=== PATIENT | female | born 1955 | race Caucasian/White ===

== ENCOUNTER → 2018-12-04 | Outpatient (CLI) | payer OTHER ==
--- NOTE | 2018-12-04 12:21 | US ---
EXAMINATION TYPE: US venous doppler duplex LE LT DATE OF EXAM: 12/04/2018 11:10 AM COMPARISON: NONE CLINICAL HISTORY: I80.9 Phlebitis and thrombophlebitis of unspecifie. plantar fasciitis surgery 6 wee ks ago, still swelling, no h/o dvt SIDE PERFORMED: Left TECHNIQUE: The lower extremity deep venous system is examined utilizing real time linear array sonog teressa with graded compression, doppler sonography and color-flow sonography. VESSELS IMAGED: External Iliac Vein (EIV) Common Femoral Vein Deep Femoral Vein Greater Saphenous Vein * Femoral Vein Popliteal Vein Small Saphenous Vein * Proximal Calf Veins (* superficial vessels) Grayscale, color doppler, spectral doppler imaging performed of the deep veins of the left lower extr emity. There is normal flow, compressibility, vascular waveforms. Left Leg: Appears negative for DVT tech impression given to office @1114 IMPRESSION: No sonographic evidence of deep venous thrombosis within the visualized portions of the left lower extremity.
== END | disposition home or self-care (01) ==
LOC: RADUSWWP 10:33
PROVIDERS: ATTEND Orthopaedic Surgery
DX: I80.3 Phlebitis and thrombophlebitis of lower extremities, unspecified (principal)

== ENCOUNTER → 2019-01-02 | Outpatient (CLI) | payer OTHER ==
--- NOTE | 2019-01-03 10:25 | P.ARTDOP ---
Arterial Doppler LOWER EXTREMITY ARTERIAL DOPPLER: DATE OF SERVICE: 01/02/2019 Reason for study: Left leg ulcer. Doppler waveforms: Multiphasic bilaterally throughout. Pulse volume recording: []. Pressure gradients: None. Ankle-brachial indices: Greater than 1 on the right and 0.93 on the left. Toe pressures: [] on the right, [] on the left Impression: Normal on the right with possible very mild left SFA disease..
== END | disposition home or self-care (01) ==
LOC: RADUSWWP 09:29
PROVIDERS: ATTEND Podiatrist
DX: I87.312 Chronic venous hypertension (idiopathic) with ulcer of left lower extremity (principal)
CPT/HCPCS: 93923

== ENCOUNTER 2021-03-16 18:09 | Inpatient (IN) | payer MEDICARE, OTHER ==
[2021-03-16 20:04] LABS: Basophils # (A) 0.1 k/uL (0-0.2); Basophils % (A) 1 %; Eosinophils # (A) 0.2 k/uL (0-0.7); Eosinophils % (A) 2 %; HGB 14.7 gm/dL (11.4-16.0); Lymphocytes # (A) 2.4 k/uL (1.0-4.8); Lymphocytes % (A) 17 %; MCH 27.5 pg (25.0-35.0); MCV 85.9 fL (80.0-100.0); Mean Platelet Volume 8.6; Monocytes # (A) 0.8 k/uL (0-1.0); Monocytes % (A) 5 %; Neutrophils # (A) 10.3 k/uL (1.3-7.7); Neutrophils % (A) 74 %; Platelet Count 280 k/uL (150-450); RBC 5.35 m/uL (3.80-5.40); RDW 13.7 % (11.5-15.5)
[2021-03-16 20:16] LABS: Albumin 4.6 g/dL (3.5-5.0); Calcium 9.8 mg/dL (8.4-10.2); Total Bilirubin 0.5 mg/dL (0.2-1.3); Total Protein 7.8 g/dL (6.3-8.2)
[2021-03-16 20:22] LABS: INR 0.9 (<1.2); Partial Thromboplastin Time 22.4 sec (22.0-30.0)
[2021-03-16] MEDS ORDERED: ASPIRIN 81 MG PO STA (21:54)
[2021-03-16] MEDS ORDERED: HEPARIN SODIUM 1,000 UN/ML (10ML VL) IV PRN (21:55)
[2021-03-16] MEDS ORDERED: HEPARIN SODIUM 1,000 UN/ML (10ML VL) IV ONE (21:55)
--- NOTE | 2021-03-16 21:55 | ED ---
General Adult HPI - General Chief complaint: Recheck/Abnormal Lab/Rx Stated complaint: Recheck/Abnormal Stress Test Source: patient Mode of arrival: ambulatory Limitations: no limitations - History of Present Illness Initial comments: 65-year-old female with past medical history of high cholesterol presents emergency department after she was told that she had abnormal results from her stress test. Patient reports that she has had some chest discomfort over the past 2 weeks. Reports that it starts in her left arm and travels up to the left side of her neck. The pain is intermittent with walking. Denies any current pain. She was seen in her primary care office one week ago. They did order a stress test and placed her on Flexeril. Patient had her stress test today. She was called just prior to hospital arrival and they told her that her tests was abnormal and she needed to come to the hospital. Denies previous history of cardiac disease. Does not follow with geographic analyst. Patient not on any blood thinners and denies contraindication. No associated shortness of breath, fevers, chills or cough. No lower trauma swelling. No other alleviating, precipitating or modifying factors - Related Data Home Medications Medication Instructions Recorded Confirmed Atorvastatin [Lipitor] 20 mg PO HS 03/16/21 03/16/21 Cyclobenzaprine [Flexeril] 10 mg PO HS PRN 03/16/21 03/16/21 Famotidine 40 mg PO DAILY 03/16/21 03/16/21 Omeprazole 40 mg PO DAILY 03/16/21 03/16/21 Triamterene/Hydrochlorothiazid 1 tab PO DAILY 03/16/21 03/16/21 [Triamterene-Hctz 37.5-25 mg Tb] Allergies Allergy/AdvReac Type Severity Reaction Status Date / Time Penicillins Allergy Unknown Verified 03/16/21 22:26 Sulfa (Sulfonamide Allergy Unknown Verified 03/16/21 22:26 Antibiotics) Review of Systems ROS Statement: Those systems with pertinent positive or pertinent negative responses have been documented in the HPI. ROS Other: All systems not noted in ROS Statement are negative. Past Medical History Past Medical History: GERD/Reflux, Hyperlipidemia History of Any Multi-Drug Resistant Organisms: None Reported Past Surgical History: Orthopedic Surgery Past Psychological History: No Psychological Hx Reported Smoking Status: Former smoker Past Alcohol Use History: Occasional Past Drug Use History: None Reported General Exam Limitations: no limitations Course Vital Signs 03/16/21 03/16/21 03/17/21 19:14 21:00 00:00 Temperature 98.6 F Pulse Rate 99 85 Pulse Rate [ 95 Pulse Oximetery ] Respiratory 20 18 Rate Blood Pressure 129/75 131/79 O2 Sat by Pulse 98 96 Oximetry - Reevaluation(s) Reevaluation #1: Spoke with Dr. Lopez - will heparinize, ASA, and make NPO at midnight. Patient not having any active chest pain. 03/16/21 21:54 EKG Findings - EKG Comments: EKG Findings:: EKG demonstrates a normal sinus rhythm with a ventricular rate of 87. MS interval 166. QRS E4. QTC of 425. There is a biphasic T-wave in lead 3. Mild ST depression in [address] No acute ST segment elevation. Medical Decision Making - Medical Decision Making Upon arrival patient is placed into room 6. I did review her stress test which reveals a large area of ischemia of the inferior wall. Patient is not currently symptomatic. 12-lead EKG does not demonstrate any acute ST segment elevation. Laboratory studies are conducted which demonstrates a troponin of 0.260. Patient has no contraindications and therefore she is placed on heparin and given an aspirin. I discussed the case with Dr. Lopez who agreed to this treatment plan. Chest x-ray was performed which demonstrates no active cardio pulmonary disease. Patient will be admitted to Dr. Quintero who agrees to admission. Patient remained in stable condition awaiting a bed on the floor - Lab Data Result diagrams: 03/16/21 19:43 03/16/21 19:43 Lab Results 03/16/21 03/16/21 03/16/21 Range/Units 19:43 19:43 19:43 WBC 14.0 H (3.8-10.6) k/uL RBC 5.35 (3.80-5.40) m/uL Hgb 14.7 (11.4-16.0) gm/dL Hct 46.0 (34.0-46.0) % MCV 85.9 (80.0-100.0) fL MCH 27.5 (25.0-35.0) pg MCHC 32.0 (31.0-37.0) g/dL RDW 13.7 (11.5-15.5) % Plt Count 280 (150-450) k/uL MPV 8.6 Neutrophils % 74 % Lymphocytes % 17 % Monocytes % 5 % Eosinophils % 2 % Basophils % 1 % Neutrophils # 10.3 H (1.3-7.7) k/uL Lymphocytes # 2.4 (1.0-4.8) k/uL Monocytes # 0.8 (0-1.0) k/uL Eosinophils # 0.2 (0-0.7) k/uL Basophils # 0.1 (0-0.2) k/uL PT 10.0 (9.0-12.0) sec INR 0.9 (<1.2) APTT 22.4 (22.0-30.0) sec Sodium 138 (137-145) mmol/L Potassium 4.0 (3.5-5.1) mmol/L Chloride 102 (98-107) mmol/L Carbon Dioxide 24 (22-30) mmol/L Anion Gap 12 mmol/L BUN 26 H (7-17) mg/dL Creatinine 1.08 H (0.52-1.04) mg/dL Est GFR (CKD-EPI)AfAm 62 (>60 ml/min/1.73 sqM) Est GFR (CKD-EPI)NonAf 54 (>60 ml/min/1.73 sqM) Glucose 117 H (74-99) mg/dL Calcium 9.8 (8.4-10.2) mg/dL Total Bilirubin 0.5 (0.2-1.3) mg/dL AST 25 (14-36) U/L ALT 23 (4-34) U/L Alkaline Phosphatase 98 (38-126) U/L Troponin I (0.000-0.034) ng/mL Total Protein 7.8 (6.3-8.2) g/dL Albumin 4.6 (3.5-5.0) g/dL 03/16/21 Range/Units 19:43 WBC (3.8-10.6) k/uL RBC (3.80-5.40) m/uL Hgb (11.4-16.0) gm/dL Hct (34.0-46.0) % MCV (80.0-100.0) fL MCH (25.0-35.0) pg MCHC (31.0-37.0) g/dL RDW (11.5-15.5) % Plt Count (150-450) k/uL MPV Neutrophils % % Lymphocytes % % Monocytes % % Eosinophils % % Basophils % % Neutrophils # (1.3-7.7) k/uL Lymphocytes # (1.0-4.8) k/uL Monocytes # (0-1.0) k/uL Eosinophils # (0-0.7) k/uL Basophils # (0-0.2) k/uL PT (9.0-12.0) sec INR (<1.2) APTT (22.0-30.0) sec Sodium (137-145) mmol/L Potassium (3.5-5.1) mmol/L Chloride (98-107) mmol/L Carbon Dioxide (22-30) mmol/L Anion Gap mmol/L BUN (7-17) mg/dL Creatinine (0.52-1.04) mg/dL Est GFR (CKD-EPI)AfAm (>60 ml/min/1.73 sqM) Est GFR (CKD-EPI)NonAf (>60 ml/min/1.73 sqM) Glucose (74-99) mg/dL Calcium (8.4-10.2) mg/dL Total Bilirubin (0.2-1.3) mg/dL AST (14-36) U/L ALT (4-34) U/L Alkaline Phosphatase (38-126) U/L Troponin I 0.260 H* (0.000-0.034) ng/mL Total Protein (6.3-8.2) g/dL Albumin (3.5-5.0) g/dL Disposition Clinical Impression: Chest pain, Abnormal stress test, NSTEMI (non-ST elevated myocardial infarction) Disposition: ADMITTED IP TO THIS [facility] Condition: Serious Is patient prescribed a controlled substance at d/c from ED?: No Decision to Admit Reason: Admit from EC Decision Date: 03/16/21 Decision Time: 21:56
[2021-03-16] MEDS ORDERED: NALOXONE 0.4 MG/ML 1 ML VIAL IV PRN (21:56)
[2021-03-16] MEDS ORDERED: HEPARIN SOD,PORK IN 0.45% NACL 25,000 UNIT in 0.45% NACL 1 250ML.BAG IV SCH (22:00)
--- NOTE | 2021-03-16 22:17 | XR ---
EXAMINATION TYPE: XR chest 2V DATE OF EXAM: 03/16/2021 COMPARISON: NONE HISTORY: Cough TECHNIQUE: 2 views FINDINGS: Heart and mediastinum are normal. Lungs are clear. Diaphragm is normal. Bony thorax is inta ct. Costophrenic angles are clear. IMPRESSION: No active cardiopulmonary disease. Normal heart.
[2021-03-17 04:50] LABS: Basophils # (A) 0.1 k/uL (0-0.2); Basophils % (A) 1 %; Eosinophils # (A) 0.2 k/uL (0-0.7); Eosinophils % (A) 2 %; HCT 46.2 % (34.0-46.0); HGB 14.7 gm/dL (11.4-16.0); Lymphocytes # (A) 3.3 k/uL (1.0-4.8); Lymphocytes % (A) 26 %; MCH 27.4 pg (25.0-35.0); MCHC 31.8 g/dL (31.0-37.0); MCV 86.2 fL (80.0-100.0); Monocytes # (A) 0.6 k/uL (0-1.0); Monocytes % (A) 5 %; Neutrophils # (A) 8.4 k/uL (1.3-7.7); Neutrophils % (A) 66 %; Platelet Count 284 k/uL (150-450); RBC 5.37 m/uL (3.80-5.40); RDW 13.7 % (11.5-15.5); WBC 12.8 k/uL (3.8-10.6)
[2021-03-17 05:02] LABS: Partial Thromboplastin Time 42.7 sec (22.0-30.0); Prothrombin Time 10.3 sec (9.0-12.0)
[2021-03-17 05:22] LABS: Calcium 10.1 mg/dL (8.4-10.2); Potassium 3.7 mmol/L (3.5-5.1)
[2021-03-17] MEDS ORDERED: NITROGLYCERIN SL TABS 0.4 MG TAB SUBLINGUAL PRN ×2 (08:29→11:12)
[2021-03-17] MEDS ORDERED: ALPRAZolam 0.25 MG TAB PO PRN (08:29)
[2021-03-17] MEDS ORDERED: ALPRAZolam 0.5 MG TAB PO PRN (08:29)
[2021-03-17] MEDS ORDERED: ATORVASTATIN 80 MG TAB PO STA (08:29)
[2021-03-17] MEDS ORDERED: NON FORMULARY DRUG (Famotidine [Famotidine] 40 MG Tablet) PO SCH (09:00)
[2021-03-17] MEDS: PANTOPRAZOLE 40 MG TABLET PO SCH (09:07)
[2021-03-17] MEDS ORDERED: IV FLUID CONTINUATION 1,000 ML IV ONE (09:25)
[2021-03-17] MEDS ORDERED: LIDOCAINE 1% INJ 10MG/ML (20 ML MDV) SQ ONE ×2 (09:35→09:38)
[2021-03-17] MEDS ORDERED: MIDAZOLAM 2 MG/2 ML VIAL IV ONE (09:35)
[2021-03-17] MEDS ORDERED: fentaNYL (PF) 50 MCG/ML 2 ML AMP IV ONE (09:35)
[2021-03-17] MEDS ORDERED: VERAPAMIL SYRINGE (5 MG/10 ML) INTRAARTER ONE (09:39)
[2021-03-17] MEDS: HEPARIN SODIUM 1,000 UN/ML (10ML VL) IV ONE ×3 (09:46→10:36)
[2021-03-17] MEDS ORDERED: NITROGLYCERIN 1000MCG/10ML SYRINGE INTRACORON ONE ×3 (10:20→10:47)
[2021-03-17] MEDS ORDERED: PRASUGREL 10 MG TAB PO ONE (10:29)
--- NOTE | 2021-03-17 10:41 | P.CRDCN ---
History of Present Illness History of present illness: This is a 65 year old female with a past medical history of hyperlipidemia and vertigo, former smoker quit 4 years ago. She does not follow with a sales promotion representative. We are consulted for chest pain. Patient underwent a Cardiolyte stress test yesterday 03/16/21 that revealed large stress induced ischemia along the inferior wall. She was told to go to the emergency department. She states she underwent the stress test because for 2-3 weeks she has been having intermittent left and right sided chest pain, radiating to her neck, jaw and down her right arm. She states it would come on with activity. She did have some mild shortness of breath with it. Denies nausea, diaphoresis, lightheadedness, dizziness, syncope or near syncope. She denies any history of CAD, [place], Hypertension, diabetes, or stroke. She denies family history of heart disease. She is a former smoker quit 4 years ago. Denies alcohol or illicit drug use. Currently she is chest pain free. DIAGNOSTICS EKG reveal sinus rhythm, heart rate 87, T wave inversion in lead 3, no significant ST-T wave abnormalities to suggest acute ischemia. Chest xray no acute cardiopulmonary process Laboratory reviewtroponin 0.26, 0.22, 0.22, WBC 12.8, hemoglobin 14.7, platelets 284, sodium 138, potassium 3.7, BUN 23, serum creatinine 0.9, COVID-19 negative Current home medications include Dyazide 30 7. 525 milligrams daily, atorvastatin 20 mg daily REVIEW OF SYSTEMS At the time of my exam: CONSTITUTIONAL: Denies fever or chills. CARDIOVASCULAR: Denies chest pain, shortness of breath, orthopnea, PND or palpitations. RESPIRATORY: Denies cough. GASTROINTESTINAL: Denies abdominal pain, diarrhea, constipation, nausea or vomiting. MUSCULOSKELETAL: Denies myalgias. NEUROLOGIC: Denies numbness, tingling, headache or weakness. ENDOCRINE: Denies fatigue, weight change, polydipsia or polyurina. GENITOURINARY: Denies burning, hematuria or urgency with micturation. HEMATOLOGIC: Denies history of anemia or bleeding. PHYSICAL EXAMINATION vitals reviewed CONSTITUTIONAL: No apparent distress. HEENT: Head is normocephalic. Pupils are equal, round. Sclerae anicteric. Mucous membranes of the mouth are moist. No JVD. No carotid bruit. CHEST EXAMINATION: Lungs are clear to auscultation. No chest wall tenderness is noted on palpation or with deep breathing. HEART EXAMINATION: Regular rate and rhythm. S1, S2 heard. No murmurs, gallops or rub. ABDOMEN: Soft, nontender. Positive bowel sounds. EXTREMITIES: 2+ peripheral pulses, no lower extremity edema and no calf tenderness. SKIN: warm, dry NEUROLOGIC EXAMINATION: Patient is awake, alert and oriented x3. ASSESSMENT NSTEMI History of hyperlipidemia History of vertigo takes Dyazide for vertigo Former tobacco use PLAN Obtain 2D echocardiogram and doppler study to assess cardiac structure and function. Plan for cardiac catheterization today, patient is agreeable I have discussed the risks, benefits and alternative therapies for the above- mentioned procedure and for both sedation/analgesia as well as necessary blood product administration, if indicated, as they pertain to this patient. The patient has indicated understanding and acceptance of the risks and procedures discussed. Questions have been answered appropriately and she is agreeable to move forward with the above-stated procedure. Further conditions based on clinical course Thank you kindly for this consultation. Nurse Practitioner note has been reviewed, I agree with a documented findings and plan of care. Patient was seen and examined. Past Medical History Past Medical History: GERD/Reflux, Hyperlipidemia History of Any Multi-Drug Resistant Organisms: None Reported Past Surgical History: Orthopedic Surgery Past Psychological History: No Psychological Hx Reported Smoking Status: Former smoker Past Alcohol Use History: Occasional Past Drug Use History: None Reported Medications and Allergies Home Medications Medication Instructions Recorded Confirmed Type Atorvastatin [Lipitor] 20 mg PO HS 03/16/21 03/16/21 History Cyclobenzaprine [Flexeril] 10 mg PO HS PRN 03/16/21 03/16/21 History Famotidine 40 mg PO DAILY 03/16/21 03/16/21 History Omeprazole 40 mg PO DAILY 03/16/21 03/16/21 History Triamterene/Hydrochlorothiazid 1 tab PO DAILY 03/16/21 03/16/21 History [Triamterene-Hctz 37.5-25 mg Tb] Allergies Allergy/AdvReac Type Severity Reaction Status Date / Time Penicillins Allergy Unknown Verified 03/16/21 22:26 Sulfa (Sulfonamide Allergy Unknown Verified 03/16/21 22:26 Antibiotics) Physical Exam Vitals: Vital Signs Temp Pulse Pulse Resp BP Pulse Ox 03/17/21 05:33 85 18 93/62 95 03/17/21 04:16 83 18 118/85 95 03/17/21 00:00 85 18 131/79 96 03/16/21 21:00 95 03/16/21 19:14 98.6 F 99 20 129/75 98 Intake and Output 03/16/21 03/17/21 03/17/21 22:59 06:59 14:59 Intake Total 66.776 Balance 66.776 Intake: Intake, IV Titration 66.776 Amount Heparin Sod,Pork in 0.45% 66.776 NaCl 25,000 unit In 0.45 % NaCl 1 250ml.bag @ 12 UNITS/KG/HR 9.253 mls/hr IV .Q24H [facility] Rx#: [id number] Other: Weight 77.111 kg Results 03/17/21 04:02 03/17/21 04:02 Cardiac Enzymes 03/16/21 03/16/21 03/16/21 Range/Units 19:43 19:43 23:43 AST 25 (14-36) U/L Troponin I 0.260 H* 0.221 H* (0.000-0.034) ng/mL 03/17/21 Range/Units 02:45 AST (14-36) U/L Troponin I 0.223 H* (0.000-0.034) ng/mL Coagulation 03/16/21 03/17/21 Range/Units 19:43 04:02 PT 10.0 10.3 (9.0-12.0) sec APTT 22.4 42.7 H (22.0-30.0) sec CBC 03/16/21 03/17/21 Range/Units 19:43 04:02 WBC 14.0 H 12.8 H (3.8-10.6) k/uL RBC 5.35 5.37 (3.80-5.40) m/uL Hgb 14.7 14.7 (11.4-16.0) gm/dL Hct 46.0 46.2 H (34.0-46.0) % Plt Count 280 284 (150-450) k/uL Comprehensive Metabolic Panel 03/16/21 03/17/21 Range/Units 19:43 04:02 Sodium 138 138 (137-145) mmol/L Potassium 4.0 3.7 (3.5-5.1) mmol/L Chloride 102 102 (98-107) mmol/L Carbon Dioxide 24 24 (22-30) mmol/L BUN 26 H 23 H (7-17) mg/dL Creatinine 1.08 H 0.98 (0.52-1.04) mg/dL Glucose 117 H 115 H (74-99) mg/dL Calcium 9.8 10.1 (8.4-10.2) mg/dL AST 25 (14-36) U/L ALT 23 (4-34) U/L Alkaline Phosphatase 98 (38-126) U/L Total Protein 7.8 (6.3-8.2) g/dL Albumin 4.6 (3.5-5.0) g/dL Current Medications Generic Name Dose Route Start Last Admin Trade Name Freq PRN Reason Stop Dose Admin Atorvastatin Calcium 20 mg 03/17/21 21:00 Atorvastatin 20 Mg Tab PO HS BEKAH Heparin Sodium (Porcine) 0 unit 03/16/21 21:55 03/17/21 05:29 Heparin Sodium 1,000 Un/Ml (10ml Vl) IV 1,927.75 unit PER PROTOCOL PRN Administration Low PTT Protocol Heparin Sodium/Sodium Chloride 250 mls @ 9.253 mls/hr 03/16/21 22:00 03/17/21 05:31 25,000 unit/ Sodium Chloride IV 14 units/kg/hr .Q24H BEKAH 10.796 mls/hr Titration Protocol 12 UNITS/KG/HR Naloxone HCl 0.2 mg 03/16/21 21:56 Naloxone 0.4 Mg/Ml 1 Ml Vial IV Q2M PRN Opioid Reversal Pantoprazole Sodium 40 mg 03/17/21 09:00 Pantoprazole 40 Mg Tablet PO DAILY BEKAH Triamterene/Hydrochlorothiazide 1 each 03/17/21 09:00 Triamterene-Hctz 37.5-25mg 1 Each Tab PO DAILY BEKAH Intake and Output 03/16/21 03/17/21 03/17/21 22:59 06:59 14:59 Intake Total 66.776 Balance 66.776 Intake: Intake, IV Titration 66.776 Amount Heparin Sod,Pork in 0.45% 66.776 NaCl 25,000 unit In 0.45 % NaCl 1 250ml.bag @ 12 UNITS/KG/HR 9.253 mls/hr IV .Q24H [facility] Rx#: [id number] Other: Weight 77.111 kg 03/17/21 04:02 03/17/21 04:02
--- NOTE | 2021-03-17 10:47 | ECHOF ---
Referral Reason:elevated troponin, abnormal stress test MEASUREMENTS -------- HEIGHT: 167.6 cm WEIGHT: 77.1 kg BP: 93/62 IVSd: 1.2 cm (0.6 - 1.1) LVIDd: 3.0 cm (3.9 - 5.3) LVPWd: 1.4 cm (0.6 - 1.1) IVSs: 1.5 cm LVIDs: 1.7 cm LVPWs: 1.3 cm LAESV Index (A-L): 21.03 ml/m Ao Diam: 2.9 cm (2.0 - 3.7) AV Cusp: 1.5 cm (1.5 - 2.6) LA Diam: 2.6 cm (2.7 - 3.8) MV EXCURSION: 14.991 mm (> 18.000) MV EF SLOPE: 90 mm/s (70 - 150) EPSS: 0.7 cm MV E Peng: 0.70 m/s MV DecT: 122 ms MV A Peng: 1.16 m/s MV E/A Ratio: 0.60 RAP: 5.00 mmHg RVSP: 14.79 mmHg FINDINGS -------- Sinus rhythm. This was a technically adequate study. The left ventricular size is normal. There is mild concentric left ventricular hypertrophy. Overa ll left ventricular systolic function is low-normal with, an EF between 50 - 55 %. Basal inferior L V wall motion is hypokinetic. The right ventricle is normal in size. Normal LA size by volume 22+/-6 ml/m2. The right atrial size is normal. Interatrial and interventricular septum intact. There is no evidence of aortic regurgitation. There is no evidence of aortic stenosis. No mitral regurgitation. Trace tricuspid regurgitation present. There is no evidence of pulmonary hypertension. The right ventricular systolic pressure, as measured by Doppler, is 14.79mmHg. There is no pulmonic regurgitation present. The aortic root size is normal. Normal inferior vena cava with normal inspiratory collapse consistent with estimated right atrial pre ssure of 5 mmHg. Echo free space represents a pericardial fat pad. There is no pericardial effusion. CONCLUSIONS -------- 1. The left ventricular size is normal. 2. There is mild concentric left ventricular hypertrophy. 3. Overall left ventricular systolic function is low-normal with, an EF between 50 - 55 %. 4. Basal inferior LV wall motion is hypokinetic. 5. Trace tricuspid regurgitation present. 6. There is no evidence of pulmonary hypertension. 7. The right ventricular systolic pressure, as measured by Doppler, is 14.79mmHg. PARTS FACILITATOR: Lisa Paul RDCS
[2021-03-17] MEDS ORDERED: IOPAMIDOL-370 125ML BTL INJ ONE (10:58)
[2021-03-17] MEDS ORDERED: ZOLPIDEM 5 MG TAB PO PRN (11:12)
[2021-03-17] MEDS ORDERED: MAG HYDROX/AL HYDROX/SIMETH 30 ML CUP PO PRN (11:12)
[2021-03-17] MEDS ORDERED: ATROPINE SULFATE 0.1 MG/ML 10ML SYRINGE IV PRN (11:12)
[2021-03-17] MEDS ORDERED: RX INFO: IV CONTRAST WAS GIVEN 1 EACH MISC MISCELLANE PRN (11:12)
--- NOTE | 2021-03-17 11:15 | CC ---
CARDIAC CATHETERIZATION REPORT INDICATION: Acute non ST-segment elevation TN. PROCEDURE NOTE: After obtaining informed consent, left heart catheterization and coronary angiogram were performed via the right radial artery using size 4 Leonel catheter. Left ventricular pressures were obtained using a pigtail catheter. The patient tolerated the procedure well without any obvious immediate complications, received a conscious sedation for about 16 minutes. We obtained the right radial artery access using modified Seldinger technique and under fluoroscopic guidance, the guidewire and catheters were floated into the ascending aorta. The patient received 5 mg of verapamil and 2000 units of heparin as per protocol. FINDINGS: HEMODYNAMICS: Left ventricular end-diastolic pressure is 10 mm. There is no significant gradient across the aortic valve. LEFT VENTRICULOGRAM: Not performed. ANGIOGRAPHIC DATA: LEFT MAIN CORONARY ARTERY: Left main coronary artery is a normal-sized vessel and is free of stenosis. Divides into left anterior descending coronary artery and circumflex coronary artery. LEFT ANTERIOR DESCENDING CORONARY ARTERY: LAD and its branches, circumflex coronary artery and its branches are free of significant stenosis RIGHT CORONARY ARTERY: Right coronary artery is a large dominant vessel. There is a focal area of 95% stenosis in the mid RCA. CONCLUSIONS: 95% stenosis involving mid RCA. PLAN: Patient will undergo angioplasty with stent placement of the same. MMODL / IJN: [id number] /
--- NOTE | 2021-03-17 11:18 | LTR ---
DATE OF SERVICE: 03/17/[address] Austin: I performed cardiac catheterization on Clarisse Collazo. A detailed catheterization note is enclosed records. In brief, this 65-year-old lady presented to the hospital with acute aqu-UK-[id number]- elevation MS and a recently abnormal stress test and underwent cardiac catheterization expeditiously that showed a tight stenosis involving mid RCA and will undergo angioplasty with stent placement of the same. Thank you for giving us the privilege to participate in the care of this pleasant lady. Sincerely, ROBEL / FAVION: [id number] /
--- NOTE | 2021-03-17 13:27 | P.HPIM ---
History of Present Illness H&P Date: 03/17/21 Chief Complaint: Chest Pain This is a 65-year-old female with past medical history of gastroesophageal reflux disease, hyperlipidemia, former nicotine dependence-quit smoking 2 years ago presented to the ER with chest pain radiating up bilateral arms into post sites of the neck and into the jaws times days. She completed a Cardiolite stress test yesterday, notified of critical results and advised to proceed straight to the ER. ER reports stress test revealed large area of ischemia of the inferior wall. She denies nausea vomiting or diaphoresis. Denies shortness of breath. Denies lightheadedness dizziness or focal deficits. Reports father has a history of mild ND. Troponins 0.26, 0.22, 0.22. EKG reported normal sinus rhythm, mild ST depression in leads 1 and aVL, T-wave inversion in lead 3. Denies cough or congestion. Chest x-ray reported no acute cardiopulmonary disease. Echo pending. Evaluated by cardiology and scheduled for cardiac catheterization. Patient was heparinized, received aspirin and is currently nothing by mouth. Afebrile, vital signs stable, maintaining O2 sats in the high 90s on room air. Renal function mildly elevated on admission with BUN 26, creatinine 1.08 currently 223, 0.98. Electrolytes within normal limits, with the exception magnesium, pending. Review of Systems ROS Statement: Those systems with pertinent positive or pertinent negative responses have been documented in the HPI. ROS Other: All systems not noted in ROS Statement are negative. Past Medical History Past Medical History: GERD/Reflux, Hyperlipidemia History of Any Multi-Drug Resistant Organisms: None Reported Past Surgical History: Orthopedic Surgery Past Psychological History: No Psychological Hx Reported Smoking Status: Former smoker Past Alcohol Use History: Occasional Past Drug Use History: None Reported Medications and Allergies Home Medications Medication Instructions Recorded Confirmed Type Atorvastatin [Lipitor] 20 mg PO HS 03/16/21 03/16/21 History Cyclobenzaprine [Flexeril] 10 mg PO HS PRN 03/16/21 03/16/21 History Famotidine 40 mg PO DAILY 03/16/21 03/16/21 History Omeprazole 40 mg PO DAILY 03/16/21 03/16/21 History Triamterene/Hydrochlorothiazid 1 tab PO DAILY 03/16/21 03/16/21 History [Triamterene-Hctz 37.5-25 mg Tb] Allergies Allergy/AdvReac Type Severity Reaction Status Date / Time Penicillins Allergy Unknown Verified 03/16/21 22:26 Sulfa (Sulfonamide Allergy Unknown Verified 03/16/21 22:26 Antibiotics) Physical Exam Vitals: Vital Signs Temp Pulse Pulse Pulse Resp BP BP 03/17/21 12:45 77 16 115/71 03/17/21 12:14 92 16 116/62 03/17/21 11:44 96 16 114/73 03/17/21 11:29 84 16 113/76 03/17/21 11:14 84 16 132/69 03/17/21 08:06 85 16 93/62 03/17/21 05:33 85 18 93/62 03/17/21 04:16 83 18 118/85 03/17/21 00:00 85 18 131/79 03/16/21 21:00 95 03/16/21 19:14 98.6 F 99 20 129/75 Pulse Ox 03/17/21 12:45 03/17/21 12:14 97 03/17/21 11:44 97 03/17/21 11:29 97 03/17/21 11:14 98 03/17/21 08:06 94 L 03/17/21 05:33 95 03/17/21 04:16 95 03/17/21 00:00 96 03/16/21 21:00 03/16/21 19:14 98 Intake and Output 03/16/21 03/17/21 03/17/21 22:59 06:59 14:59 Intake Total 66.776 200 Balance 66.776 200 Intake: IV 200 Intake, IV Titration 66.776 Amount Heparin Sod,Pork in 0.45% 66.776 NaCl 25,000 unit In 0.45 % NaCl 1 250ml.bag @ 12 UNITS/KG/HR 9.253 mls/hr IV .Q24H [facility] Rx#: [id number] Other: Weight 77.111 kg PHYSICAL EXAM: VITAL SIGNS: As above GENERAL: Sitting up on stretcher, in no acute distress HEENT: Conjunctivae normal. eyes normal. NECK: No JVD. No thyroid enlargement. No LNs CARDIOVASCULAR: S1, S2 regular. No murmur RESPIRATION: Breath sounds diminished in the bases. No rhonchi or crackles. No bronchial breathing. ABDOMEN: Soft, nontender . No guarding. no masses palpable. No ascites, No hepatosplenomegaly.Bowel sounds heard. LEGS: No edema. no swelling PSYCHIATRY: Alert and oriented X3, mood and affect normal. NERVOUS SYSTEM: Cranial N 2-12 grossly normal. Moves all 4 limbs. No focal deficits. Strength and sensation grossly intact.. Skin: Warm and dry, no rash Results CBC & Chem 7: 03/17/21 04:02 03/17/21 04:02 Labs: Abnormal Lab Results - Last 24 Hours (Table) 03/16/21 03/16/21 03/16/21 Range/Units 19:43 19:43 19:43 WBC 14.0 H (3.8-10.6) k/uL Hct (34.0-46.0) % Neutrophils # 10.3 H (1.3-7.7) k/uL APTT (22.0-30.0) sec BUN 26 H (7-17) mg/dL Creatinine 1.08 H (0.52-1.04) mg/dL Glucose 117 H (74-99) mg/dL Troponin I 0.260 H* (0.000-0.034) ng/mL 03/16/21 03/17/21 03/17/21 Range/Units 23:43 02:45 04:02 WBC (3.8-10.6) k/uL Hct (34.0-46.0) % Neutrophils # (1.3-7.7) k/uL APTT 42.7 H (22.0-30.0) sec BUN (7-17) mg/dL Creatinine (0.52-1.04) mg/dL Glucose (74-99) mg/dL Troponin I 0.221 H* 0.223 H* (0.000-0.034) ng/mL 03/17/21 03/17/21 Range/Units 04:02 04:02 WBC 12.8 H (3.8-10.6) k/uL Hct 46.2 H (34.0-46.0) % Neutrophils # 8.4 H (1.3-7.7) k/uL APTT (22.0-30.0) sec BUN 23 H (7-17) mg/dL Creatinine (0.52-1.04) mg/dL Glucose 115 H (74-99) mg/dL Troponin I (0.000-0.034) ng/mL Assessment and Plan Assessment: Acute chest pain, acute NSTEMI ,status post abnormal Cardiolite stress test, cardiac cath pending Family history of CAD Hyperlipidemia Former nicotine dependence, quit 2 years ago Gastroesophageal reflux disease History of vertigo Plan: Continue on current medication regime ,monitoring and symptomatic treatment. Anticoagulated on heparin drip, scheduled for cardiac cath, echo pending. Follow closely with cardiology. Prognosis guarded given multiple complex medical issues. The impression and plan of care has been dictated as directed. : I performed a history and examination of this patient, discussed the same with the dictator. I agree with the dictator's note ,documented as a scribe. Any additional findings or plans will be noted.
[2021-03-17] MEDS: TRIAMTERENE-HCTZ 37.5-25MG 1 EACH TAB PO SCH (13:48)
[2021-03-17] MEDS: SODIUM CHLORIDE 0.9% 1,000 ML in EMPTY BAG 1 BAG IV SCH ×4 (14:40→23:22)
[2021-03-17] MEDS: METOPROLOL TARTRATE 12.5 MG TAB PO SCH (20:01)
--- NOTE | 2021-03-17 20:25 | P.PRCINT ---
Percutaneous Coronary Int. - Percutaneous Coronary Intervention Percutaneous Coronary Intervention: PROCEDURES PERFORMED: Right coronary angiography, PCI of mid RCA with a 3.5 x 18mm Xience ELLE, post dilated with a 4.0 NC balloon INDICATION: NSTEMI HISTORY: Patient is a pleasant 65 year old female who has been having off and on chest pain over the last 3 weeks and presented with NSTEMI. Diagnostic heart cath showed a mid 95% RCA lesion and therefore I was asked to perform PCI. CONSENT:I have discussed the risks, benefits and alternative therapies for the above-mentioned procedure and for both sedation/analgesia as well as necessary blood product administration, if indicated, as they pertain to this patient. The patient has indicated understanding and acceptance of the risks and procedures discussed. PROCEDURE: After the risks, benefits and alternatives of the above mentioned procedure explained in detail with the patient, informed consent was obtained. Patient had already been taken to the catheterization lab and prepped and draped in usual fashion. A right radial 6Fr sheath had already been placed. Heparin was given for ACT> 250. A 6Fr AL 0.75 guide was used to engage the RCA. A 0.014 BMW wire was advanced into the distal RCA. Predilation was performed with a 3.0 x 12mm balloon. Next a 3.5 x 18mm Xience ELLE was placed. The stent was post dilated with a 4.0 NC balloon. The wire was pulled and final angiograms were taken. Pre intervention there was 95% stenosis and HEAVEN 3 flow and post intervention there was 0% stenosis and HEAVEN 3 flow with no dissection. There was diffuse other 10-20% stenosis more proximal and more distal felt best treated medically. The right radial sheath was removed and a TR band was placed with hemostasis achieved. The patient tolerated the procedure well. Patient was transported back to the post catheterization holding area in stable condition. Conscious Sedation: Patient was monitored under the direct supervision of vision of myself for conscious sedation using Versed and fentanyl for a total duration of 28 minutes HEMODYNAMICS: Ao: 142/78 SELECTIVE CORONARY ARTERIOGRAPHY: LEFT MAIN: Not imaged see diagnostic report LEFT ANTERIOR DESCENDING CORONARY ARTERY: Not imaged see diagnostic report LEFT CIRCUMFLEX CORONARY ARTERY: Not imaged see diagnostic report RIGHT CORONARY ARTERY: The right coronary artery is a large caliber vessel which gives off a PDA and PLV branch and is the dominant vessel. There is diffuse mild 10-20% proximal and distal RCA stenosis and a mid 95% RCA stenosis. FINAL IMPRESSION: 1. CAD as described above including 95% mid RCA stenosis, s/p PCI of mid RCA with a 3.5 x 18mm Xience ELLE, post dilated with a 4.0 NC balloon 2. NSTEMI, culprit artery RCA PLAN: 1. Aggressive risk factor modification per most recent ACC/AHA guidelines. 2. Continue dual antiplatelets for 12 months.
[2021-03-17] MEDS ORDERED: ATORVASTATIN 20 MG TAB PO SCH (21:00)
[2021-03-18] MEDS ORDERED: HEPARIN SODIUM,PORCINE 10,000 UNIT in SODIUM CHLORIDE 0.9% 1,000 ML IRRIGATION PRN (07:00)
[2021-03-18] MEDS ORDERED: HEPARIN SODIUM,PORCINE 2,500 UNIT in SODIUM CHLORIDE 0.9% 250 ML IRRIGATION PRN (07:00)
[2021-03-18 08:19] LABS: Basophils # (A) 0.1 k/uL (0-0.2); Basophils % (A) 1 %; Eosinophils # (A) 0.2 k/uL (0-0.7); Eosinophils % (A) 2 %; HCT 45.1 % (34.0-46.0); HGB 14.2 gm/dL (11.4-16.0); Lymphocytes # (A) 2.6 k/uL (1.0-4.8); Lymphocytes % (A) 23 %; MCH 27.4 pg (25.0-35.0); MCHC 31.4 g/dL (31.0-37.0); MCV 87.1 fL (80.0-100.0); Mean Platelet Volume 8.8; Monocytes # (A) 0.5 k/uL (0-1.0); Monocytes % (A) 5 %; Neutrophils # (A) 7.8 k/uL (1.3-7.7); Neutrophils % (A) 69 %; Platelet Count 269 k/uL (150-450); RBC 5.17 m/uL (3.80-5.40); RDW 13.6 % (11.5-15.5); WBC 11.4 k/uL (3.8-10.6)
[2021-03-18] MEDS: PANTOPRAZOLE 40 MG TABLET PO SCH (08:23)
[2021-03-18] MEDS: PRASUGREL 10 MG TAB PO SCH (08:23)
[2021-03-18] MEDS: ASPIRIN 81 MG PO SCH (08:23)
[2021-03-18] MEDS: TRIAMTERENE-HCTZ 37.5-25MG 1 EACH TAB PO SCH (08:23)
[2021-03-18] MEDS: METOPROLOL TARTRATE 12.5 MG TAB PO SCH ×2 (08:23→19:42)
[2021-03-18] MEDS: ATORVASTATIN 80 MG TAB PO SCH (08:23)
[2021-03-18 08:55] LABS: Calcium 9.9 mg/dL (8.4-10.2); Potassium 4.1 mmol/L (3.5-5.1)
[2021-03-18] MEDS ORDERED: SODIUM CHLORIDE 0.9% 500 ML 500 ML IV ONE (11:24)
[2021-03-18] MEDS: SODIUM CHLORIDE 0.9% 1,000 ML in EMPTY BAG 1 BAG IV SCH ×2 (11:49→19:42)
[2021-03-18] MEDS: SODIUM CHLORIDE 0.9% 1,000 ML IV SCH ×2 (11:49→19:42)
--- NOTE | 2021-03-18 12:55 | P.PN ---
Subjective This is a 65 year old female with a past medical history of hyperlipidemia and vertigo, former smoker quit 4 years ago. She does not follow with a ca rdiologist. We are consulted for chest pain. Patient underwent a Cardiolyte stress test yesterday 03/16/21 that revealed large stress induced ischemia along the inferior wall. She was told to go to the emergency department. She states she underwent the stress test because for 2-3 weeks she has been having intermittent left and right sided chest pain, radiating to her neck, jaw and down her right arm. She states it would come on with activity. She did have some mild shortness of breath with it. Patient underwent cardiac catheterization on 03/17/2021 and PCI to the mid RCA. Patient seen at bedside, no acute distress. She denies any chest pain or shortness of breath. Her vital signs are stable. BP 98/63. HR 60s. She is in sinus mechansim. EKG with morning reveals sinus mechanism, heart rate 65, no significant ST-T wave abnormalities. Labs reviewed include stable. Sodium 138, potassium 4.1, BUN 20, serum creatinine 1.2. Her echocardiogram revealed EF of 5055 percent, basal inferior LV wall hypokinetic. PHYSICAL EXAMINATION vitals reviewed CONSTITUTIONAL: No apparent distress. HEENT: Neck Supple. No JVD CHEST EXAMINATION: Lungs are clear to auscultation. No chest wall tenderness is noted on palpation or with deep breathing. HEART EXAMINATION: Regular rate and rhythm. S1, S2 heard. No murmurs, gallops or rub. ABDOMEN: Soft, nontender. Positive bowel sounds. EXTREMITIES: 2+ peripheral pulses, no lower extremity edema and no calf tenderness. SKIN: warm, dry. Right wrist site, clean dry intact. NEUROLOGIC EXAMINATION: Patient is awake, alert and oriented x3. ASSESSMENT NSTEMI s/p PCI to mid RCA History of hyperlipidemia History of vertigo takes Dyazide for vertigo Former tobacco use Acute kidney injury, likely related to contrast dye from cath PLAN Start IV fluids 0.9 Continue dual antiplatelet therapy with aspirin and Effient. Case management consult for Effient coverage Continue satin and metoprolol tartrate 12.5mg BID Discontinue patient's Triamterene-Hctz We will keep patient for monitoring 24 hours, hopefully discharge tomorrow Monitor renal function tomorrow Nurse Practitioner note has been reviewed, I agree with a documented findings and plan of care. Patient was seen and examined. Objective - Vital Signs Vital signs: Vital Signs Temp 99.1 F 03/18/21 08:00 Pulse 62 03/18/21 11:55 Resp 16 03/18/21 11:55 BP 100/63 03/18/21 11:55 Pulse Ox 95 03/18/21 11:55 Intake & Output 03/17/21 03/18/21 03/18/21 18:59 06:59 18:59 Intake Total 922 160 240 Balance 922 160 240 Weight 77.111 kg Intake: IV 200 Intake, IV Titration 500 160 Amount Sodium Chloride 0.9% 1, 160 000 ml In Empty Bag 1 bag @ 1 ML/KG/HR 77.111 mls/ hr IV .[id number] [facility] Rx#: [id number] Sodium Chloride 0.9% 1, 500 000 ml In Empty Bag 1 bag @ 1 ML/KG/HR 77.111 mls/ hr IV .[id number] [facility] Rx#: [id number] Oral 222 240 Other: Voiding Method Toilet Toilet # Voids 1 1 2 - Labs CBC & Chem 7: 03/18/21 07:09 03/18/21 07:09 Labs: Abnormal Lab Results - Last 24 Hours (Table) 03/18/21 03/18/21 Range/Units 07:09 07:09 WBC 11.4 H (3.8-10.6) k/uL Neutrophils # 7.8 H (1.3-7.7) k/uL BUN 20 H (7-17) mg/dL Creatinine 1.21 H (0.52-1.04) mg/dL Glucose 105 H (74-99) mg/dL
[2021-03-18 13:22] VITALS: BMI 27.4
--- NOTE | 2021-03-18 15:12 | P.PN ---
Subjective Progress Note Date: 03/18/21 This is a 65-year-old female with past medical history of gastroesophageal reflux disease, hyperlipidemia, former nicotine dependence-quit smoking 2 years ago presented to the ER with chest pain radiating up bilateral arms into post sites of the neck and into the jaws times days. She completed a Cardiolite stress test yesterday, notified of critical results and advised to proceed straight to the ER. ER reports stress test revealed large area of ischemia of the inferior wall. She denies nausea vomiting or diaphoresis. Denies shortness of breath. Denies lightheadedness dizziness or focal deficits. Reports father has a history of mild [place]. Troponins 0.26, 0.22, 0.22. EKG reported normal sinus rhythm, mild ST depression in leads 1 and aVL, T-wave inversion in lead 3. Denies cough or congestion. Chest x-ray reported no acute cardiopulmonary disease. Echo pending. Evaluated by cardiology and scheduled for cardiac catheterization. Patient was heparinized, received aspirin and is currently nothing by mouth. Afebrile, vital signs stable, maintaining O2 sats in the high 90s on room air. Renal function mildly elevated on admission with BUN 26, creatinine 1.08 currently 223, 0.98. Electrolytes within normal limits, with the exception magnesium, pending. 03/18/2021 underwent cardiac catheterization yesterday with PCI to the mid RCA, tolerated procedure well. Creatinine mildly increased, 1.21, suspect contrast induced. Denies chest pain, palpitations or shortness of breath. Denies diaphoresis. Ambulating, tolerating exertion well, chest pain-free. Echo reporting low normal LV function, EF between 50-55%, hypokinetic basal inferior LV wall. Borderline hypotension with systolic blood pressure in the 90s. Telemetry sinus rhythm. Objective - Vital Signs Vital signs: Vital Signs Temp 99.1 F 03/18/21 08:00 Pulse 62 03/18/21 11:55 Resp 16 03/18/21 11:55 BP 100/63 03/18/21 11:55 Pulse Ox 95 03/18/21 11:55 Intake & Output 03/17/21 03/18/21 03/18/21 18:59 06:59 18:59 Intake Total 922 160 462 Balance 922 160 462 Weight 77.111 kg 77.111 kg Intake: IV 200 Intake, IV Titration 500 160 Amount Sodium Chloride 0.9% 1, 160 000 ml In Empty Bag 1 bag @ 1 ML/KG/HR 77.111 mls/ hr IV .[id number] [facility] Rx#: [id number] Sodium Chloride 0.9% 1, 500 000 ml In Empty Bag 1 bag @ 1 ML/KG/HR 77.111 mls/ hr IV .[id number] [facility] Rx#: [id number] Oral 222 462 Other: Voiding Method Toilet Toilet # Voids 1 1 2 - Exam PHYSICAL EXAM: VITAL SIGNS: As above GENERAL: Alert and oriented 3, Sitting up in bed, in no acute distress HEENT: Conjunctivae normal. eyes normal. NECK: Supple, No JVD. CARDIOVASCULAR: S1, S2 regular. No murmur. RESPIRATION: Breath sounds diminished in the bases. No rhonchi or crackles. ABDOMEN: Soft, nontender . No guarding. no masses palpable.+BS. LEGS: No edema. no swelling NERVOUS SYSTEM: Cranial N 2-12 grossly normal. No focal deficits. Strength and sensation grossly intact.. Skin: Warm and dry, no rash - Labs CBC & Chem 7: 03/18/21 07:09 03/18/21 07:09 Labs: Abnormal Lab Results - Last 24 Hours (Table) 03/18/21 03/18/21 Range/Units 07:09 07:09 WBC 11.4 H (3.8-10.6) k/uL Neutrophils # 7.8 H (1.3-7.7) k/uL BUN 20 H (7-17) mg/dL Creatinine 1.21 H (0.52-1.04) mg/dL Glucose 105 H (74-99) mg/dL Assessment and Plan Assessment: Acute chest pain, acute NSTEMI ,status post abnormal Cardiolite stress test, status post PCI to mid RCA Family history of CAD Acute renal failure, contrast-induced Hyperlipidemia Former nicotine dependence, quit 2 years ago Gastroesophageal reflux disease History of vertigo Plan: Continue on current medication regime ,monitoring and symptomatic treatment. Gentle IV fluid hydration. Close monitoring of renal function with repeat labs in a.m. maintain Dual antiplatelet therapy, statin and beta roel. Discharge planning in progress for tomorrow pending cardiology, MS recommendations and clearance. The impression and plan of care has been dictated as directed. : I performed a history and examination of this patient, discussed the same with the dictator. I agree with the dictator's note ,documented as a scribe. Any additional findings or plans will be noted.
[2021-03-19 04:07] VITALS: TEMP 98
[2021-03-19] MEDS: SODIUM CHLORIDE 0.9% 1,000 ML IV SCH (06:07)
[2021-03-19] MEDS: METOPROLOL TARTRATE 12.5 MG TAB PO SCH (08:22)
[2021-03-19] MEDS: ASPIRIN 81 MG PO SCH (08:22)
[2021-03-19] MEDS: ATORVASTATIN 80 MG TAB PO SCH (08:22)
[2021-03-19] MEDS: PANTOPRAZOLE 40 MG TABLET PO SCH (08:22)
[2021-03-19] MEDS: PRASUGREL 10 MG TAB PO SCH (08:22)
[2021-03-19 08:26] VITALS: BP 92/49; PULSE 65; RESP 16
[2021-03-19 09:36] LABS: Calcium 8.9 mg/dL (8.4-10.2); Potassium 4.1 mmol/L (3.5-5.1)
--- NOTE | 2021-03-19 10:45 | P.PN ---
Subjective This is a 65 year old female with a past medical history of hyperlipidemia and vertigo, former smoker quit 4 years ago. She does not follow with a ca rdiologist. We are consulted for chest pain. Patient underwent a Cardiolyte stress test yesterday 03/16/21 that revealed large stress induced ischemia along the inferior wall. She was told to go to the emergency department. She states she underwent the stress test because for 2-3 weeks she has been having intermittent left and right sided chest pain, radiating to her neck, jaw and down her right arm. She states it would come on with activity. She did have some mild shortness of breath with it. Patient underwent cardiac catheterization on 03/17/2021 and PCI to the mid RCA. Patient seen at bedside, no acute distress. She denies any chest pain or shortness of breath. Her vital signs are stable. BP 92/49. HR 60s. She is in sinus mechansim. Labs reviewed, with improvement in renal function after IV fluids. She is currently maintained on aspirin 81 mg daily, atorvastatin 80 mg daily, metoprolol titrate 25 mg twice a day, Effient 10 mg daily. Previous management Effient is covered at $56 co-pay month. Labs, sodium 139, potassium 4.1, BUN 18, serum creatinine 1.0 Her echocardiogram revealed EF of 5055 percent, basal inferior LV wall hypokinetic. PHYSICAL EXAMINATION vitals reviewed CONSTITUTIONAL: No apparent distress. HEENT: Neck Supple. No JVD CHEST EXAMINATION: Lungs are clear to auscultation. No chest wall tenderness is noted on palpation or with deep breathing. HEART EXAMINATION: Regular rate and rhythm. S1, S2 heard. No murmurs, gallops or rub. ABDOMEN: Soft, nontender. Positive bowel sounds. EXTREMITIES: 2+ peripheral pulses, no lower extremity edema and no calf tenderness. SKIN: warm, dry. Right wrist site, clean dry intact. NEUROLOGIC EXAMINATION: Patient is awake, alert and oriented x3. ASSESSMENT NSTEMI s/p PCI to mid RCA History of hyperlipidemia History of vertigo takes Dyazide for vertigo Former tobacco use Acute kidney injury, likely related to contrast dye from cath PLAN Continue dual antiplatelet therapy with aspirin and Effient. Continue statin and metoprolol tartrate 12.5mg BID Continue to hold Triamterene-Hctz From a cardiology perspective, patient stable to be discharged home today. Follow up with Dr. Whatley in 1-2 weeks. Nurse Practitioner note has been reviewed, I agree with a documented findings and plan of care. Patient was seen and examined. Objective - Vital Signs Vital signs: Vital Signs Temp 98.0 F 03/19/21 04:00 Pulse 65 03/19/21 08:00 Resp 16 03/19/21 08:00 BP 92/49 03/19/21 08:00 Pulse Ox 96 03/19/21 08:10 Intake & Output 03/18/21 03/19/21 03/19/21 18:59 06:59 18:59 Intake Total 702 1250 240 Balance 702 1250 240 Weight 77.111 kg Intake: Intake, IV Titration 1250 Amount Sodium Chloride 0.9% 1, 1250 000 ml @ 125 mls/hr IV . Q8H [facility] Rx#:[id number] Oral 702 240 Other: Voiding Method Toilet Toilet # Voids 2 2 - Labs CBC & Chem 7: 03/18/21 07:09 03/19/21 08:47 Labs: Abnormal Lab Results - Last 24 Hours (Table) 03/19/21 Range/Units 08:47 Chloride 110 H (98-107) mmol/L BUN 18 H (7-17) mg/dL Glucose 112 H (74-99) mg/dL
--- NOTE | 2021-03-19 12:12 | P.DS ---
Providers Date of admission: 03/16/21 21:56 Expected date of discharge: 03/19/21 Attending physician: Nasim Austin MD Consults: 03/16/21 21:57 Consult Physician Urgent Consulting Provider: [facility] Consult Reason/Comments: nstemi, abn stress test Do you want consulting provider notified?: Yes Primary care physician: Lisa Austin Hospital Course: Final Diagnoses: Acute chest pain, acute NSTEMI ,status post abnormal Cardiolite stress test, status post PCI to mid RCA Family history of CAD Acute renal failure, contrast-induced, improved with IV fluid hydration post procedure Hyperlipidemia Former nicotine dependence, quit 2 years ago Gastroesophageal reflux disease History of vertigo Hospital course:This is a 65-year-old female with past medical history of gastroesophageal reflux disease, hyperlipidemia, former nicotine dependence-quit smoking 2 years ago presented to the ER with chest pain radiating up bilateral arms into post sites of the neck and into the jaws times days. She completed a Cardiolite stress test yesterday, notified of critical results and advised to proceed straight to the ER. ER reports stress test revealed large area of isc hemia of the inferior wall. She denies nausea vomiting or diaphoresis. Denies shortness of breath. Denies lightheadedness dizziness or focal deficits. Reports father has a history of mild OH. Troponins 0.26, 0.22, 0.22. EKG reported normal sinus rhythm, mild ST depression in leads 1 and aVL, T-wave inversion in lead 3. Denies cough or congestion. Chest x-ray reported no acute cardiopulmonary disease. Echo pending. Evaluated by cardiology and scheduled for cardiac catheterization. Patient was heparinized, received aspirin and is currently nothing by mouth. Afebrile, vital signs stable, maintaining O2 sats in the high 90s on room air. Renal function mildly elevated on admission with BUN 26, creatinine 1.08 currently 223, 0.98. Electrolytes within normal limits, with the exception magnesium, pending. 03/18/2021 underwent cardiac catheterization yesterday with PCI to the mid RCA, tolerated procedure well. Creatinine mildly increased, 1.21, suspect contrast induced. Denies chest pain, palpitations or shortness of breath. Denies diaphoresis. Ambulating, tolerating exertion well, chest pain-free. Echo reporting low normal LV function, EF between 50-55%, hypokinetic basal inferior LV wall. Borderline hypotension with systolic blood pressure in the 90s. Telemetry sinus rhythm. Significant clinical improvement. Ambulating, tolerating exertion well. Denies chest pain, palpitations or shortness of breath. Creatinine improved with IV fluid hydration and currently down to 1.02. Cleared by cardiology for discharge. Patient will be discharged home today in a stable condition with her prognosis. The impression and plan of care has been dictated as directed. : I performed a history and examination of this patient, discussed the same with the dictator. I agree with the dictator's note ,documented as a scribe. Any additional findings or plans will be noted. Patient Condition at Discharge: Stable Plan - Discharge Summary Discharge Rx Participant: No New Discharge Prescriptions: New Atorvastatin [Lipitor] 80 mg PO DAILY 30 Days #30 tab Nitroglycerin Sl Tabs [Nitrostat] 0.4 mg SUBLINGUAL Q5M PRN #25 tab PRN Reason: Chest Pain Aspirin 81 mg PO DAILY 30 Days #30 tab Prasugrel [Effient] 10 mg PO DAILY 30 Days #30 tab Metoprolol Tartrate [Lopressor] 12.5 mg PO BID 30 Days #60 tab Continue Famotidine 40 mg PO DAILY Cyclobenzaprine [Flexeril] 10 mg PO HS PRN PRN Reason: Muscle Pain Omeprazole 40 mg PO DAILY Discontinued Atorvastatin [Lipitor] 20 mg PO HS Triamterene/Hydrochlorothiazid [Triamterene-Hctz 37.5-25 mg Tb] 1 tab PO DAILY Discharge Medication List Cyclobenzaprine [Flexeril] 10 mg PO HS PRN 03/16/21 [History] Famotidine 40 mg PO DAILY 03/16/21 [History] Omeprazole 40 mg PO DAILY 03/16/21 [History] Aspirin 81 mg PO DAILY 30 Days #30 tab 03/18/21 [Rx] Atorvastatin [Lipitor] 80 mg PO DAILY 30 Days #30 tab 03/18/21 [Rx] Metoprolol Tartrate [Lopressor] 12.5 mg PO BID 30 Days #60 tab 03/18/21 [Rx] Nitroglycerin Sl Tabs [Nitrostat] 0.4 mg SUBLINGUAL Q5M PRN #25 tab 03/18/21 [Rx] Prasugrel [Effient] 10 mg PO DAILY 30 Days #30 tab 03/18/21 [Rx] Follow up Appointment(s)/Referral(s): Lisa Austin DO [Primary Care Provider] - 3 Days Devin Whatley MD [STAFF PHYSICIAN] - 10 Days (office will call with an appt) Patient Instructions/Handouts: Left Heart Catheterization (DC), After Radial Heart Catheterization (GEN)
--- NOTE | 2021-03-24 07:37 | CDI ---
Documentation Clarification Form Date: 03/24/2021 09:38:00 AM From: Sepideh Fulton RN, CCDS Admit Date: 03/16/2021 09:56:00 PM Patient Name: Clarisse Collazo Visit Number: [id number] Discharge Date: 03/19/2021 01:07:00 PM ATTENTION: The Clinical Documentation Specialists (CDI) and [facility] Coding Staff appreciate your assistance in clarifying documentation. Please respond to the clarification below the line at the bottom and electronically sign. The CDI & [facility] Coding staff will review the response and follow-up if needed. Please note: Queries are made part of the Legal Health Record. If you have any questions, please contact the author of this message via ITS. Dr. Devin Whatley Acute Kidney injury is documented in the progress note on 03/18/21 and patient had left heart catheterization, PCI of mid RCA with ELLE on 03/17/2021. Additional clarification is requested regarding the relationship, if any, that exists between the diagnosis and the procedure. 03/16 (H/P): Renal function mildly elevated on admission with BUN 26, creatinine 1.08. 03/17 BUIN 23, creatinine 0.98 GFR 61 03/18 BUN 20 creatinine 1.21 GFR 47 Patients Admitting Diagnosis: Acute non ST-segment elevation PR Post-Operative Diagnosis: Same Procedure performed: Left heart Cath PTCA ELLE mid RCA History/Risk Factors: Hyperlipidemia, Former smoker Clinical Indicators: 44-atrv-oyly female present with abnormal results from her stress test. She was ruled in for NSTEMI. 03/18 Cardiology progress notes: Acute kidney injury, likely related to contrast dye from cath. 03/17 BUIN 23, creatinine 0.98 GFR 61 03/18 BUN 20 creatinine 1.21 GFR 47 03/19 BUN 18 creatinine 1.02 GFR 58 Treatment: Monitor renal function repeat labs 03/19 .9NS @77.111 mls/hr. 03/17 08:30 (run for at least 6 hours prior to procedure) .9NS 500 mls @ 999mls/hr. IV (03/18) then run at 125 HR 03/18-03/19 What relationship, if any, exists between the diagnosis of acute kidney injury and the procedure? [ ] Acute kidney injury is a complication of surgical procedure [ x] Acute kidney injury is an expected outcome of the surgical procedure, related to contrast dye from cath. [ ] Acute kidney injury is related to patients co-morbid condition(s) of [insert co-morbid dxs] & not a complication of the procedure [ ] Other please specify ____ [ ] Unable to determine (Template Last Revised: April 2020) MTDD
== END 2021-03-19 13:07 | disposition home or self-care (01) | DRG 247 ==
LOC: EC 18:09 → 3SCARD 21:56
PROVIDERS: ADMIT Family Medicine; ATTEND Family Medicine
PROC: 027034Z Dilation of Coronary Artery, One Artery with Drug-eluting Intraluminal Device, Percutaneous Approach (ICD-10-PCS; principal; 2021-03-17 17:30)
PROC: B2111ZZ Fluoroscopy of Multiple Coronary Arteries using Low Osmolar Contrast (ICD-10-PCS; 2021-03-17 17:30)
PROC: 4A023N7 Measurement of Cardiac Sampling and Pressure, Left Heart, Percutaneous Approach (ICD-10-PCS; 2021-03-17 17:30)
DX: I21.4 Non-ST elevation (NSTEMI) myocardial infarction (principal); N17.9 Acute kidney failure, unspecified; Z20.822 Contact with and (suspected) exposure to COVID-19; E78.00 Pure hypercholesterolemia, unspecified; I25.10 Atherosclerotic heart disease of native coronary artery without angina pectoris; K21.9 Gastro-esophageal reflux disease without esophagitis; E78.5 Hyperlipidemia, unspecified; I95.9 Hypotension, unspecified; Z79.899 Other long term (current) drug therapy; Z87.891 Personal history of nicotine dependence; Z88.0 Allergy status to penicillin; Z88.2 Allergy status to sulfonamides; Z82.49 Family history of ischemic heart disease and other diseases of the circulatory system
CPT/HCPCS: 36415; 71046; 78452; 80048; 80053; 83735; 84484; 85025; 85610; 85730; 87635; 93005; 93017; 93306; 93458; 94760; 99285

== ENCOUNTER → 2021-03-16 | Outpatient (CLI) | payer MEDICARE, OTHER ==
--- NOTE | 2021-03-16 14:32 | EST ---
EXERCISE STRESS AGE: 65 SEX: F HT: 5'6" WT: 170 lbs. PROTOCOL: Cardiolite Stress Test STAGE: 2 DURATION OF EXERCISE: 4:00 HEART RATE REST: 98 BLOOD PRESSURE REST: 122/84 MAXIMUM HEART RATE ACHIEVED: 145 MAXIMUM BLOOD PRESSURE: 155/79 85% MPHR: 132 100% MPHR: 155 METS: 6.5 INDICATIONS: Angina Pectoris CLINICAL INFORMATION: Baseline EKG revealed normal sinus rhythm with poor R-wave progression over precordial leads. Possibility of prior anterior NM should be considered. Patient walked on standard Hemal protocol for 4 minutes, achieved a maximal heart rate of 145 beats per minute. There were no ST-segment changes to indicate any ischemia. There was no evidence of any significant arrhythmia. Exercise capacity was limited. Patient did not have any angina. By EKG criteria, this is a negative stress test with limited exercise capacity with a resting abnormal EKG. Clinical correlation is suggested. ROBEL / FAVION: [id number] /
--- NOTE | 2021-03-16 16:46 | NM ---
EXAMINATION TYPE: NM stress cardiolite complete DATE OF EXAM: 03/16/2021 COMPARISON: NONE HISTORY: Angina pectoris TECHNIQUE: After the intravenous administration of 9.6 mCi Tc 99m Sestamibi - Cardiolite resting SPE CT images acquired 50 minutes post injection. At peak stress 25.1 mCi Tc 99m Sestamibi - Stress images obtained 10 minutes post injection The patient was stressed with 0.4mg Lexiscan. FINDINGS: There is a large defect along the inferior wall extending from the base to the cardiac apex. This joe ears to have some reversibility on these resting images. Correlate for stress-induced ischemic change . Wall motion is normal. Ejection fraction is calculated to be 58 %. No definite artifact to account for inferior wall defect is identified. IMPRESSION: 1. There appears be a large stress-induced ischemic change along the inferior wall. A Red level critical message alert has been initiated for Lisa Austin DO via the [employer] System on 03/16/2021 4:44 PM. This message alert has been sent to Lisa Austin DO via the preferences provided by the clinician for the receipt of Radiology Critical Findings. Message ID [id number].
== END | disposition home or self-care (01) ==
LOC: RADNMMAIN 07:49
PROVIDERS: ATTEND Family Medicine
DX: I20.8 Other forms of angina pectoris (principal)
CPT/HCPCS: 93017; 78452; A9500

== ENCOUNTER → 2021-08-06 | Outpatient (CLI) | payer MEDICARE, OTHER ==
[2021-08-06 14:58] LABS: HCT 41.4 % (37.2-46.3); HGB 12.6 g/dL (12.0-15.0); MCH 25.6 pg (27.0-32.0); MCHC 30.4 g/dL (32.0-37.0); MCV 84.1 fL (80.0-97.0); Mean Platelet Volume 12.7 fL (9.5-12.2); NRBC Per 100 WBC 0 /100 WBCS (0.0-0.0); Platelet Count 206 X 10*3/uL (140-440); RBC 4.92 X 10*6/uL (4.10-5.20); RDW 14.9 % (11.5-14.5); WBC 8.18 X 10*3/uL (4.50-10.00)
[2021-08-06 15:32] LABS: ALT 25 U/L (8-44); AST 20 U/L (13-35); African American GFR (CKD) 72.1 (60.0-200.0); Albumin 4.2 g/dL (3.8-4.9); Albumin/Globulin Ratio 1.83 (1.60-3.17); Alkaline Phosphatase 117 U/L (41-126); BUN/Creat Ratio 21.41 Ratio (12.00-20.00); Blood Urea Nitrogen 20.4 mg/dL (9.0-27.0); Calcium 9.8 mg/dL (8.7-10.3); Carbon Dioxide 25.6 mmol/L (20.0-27.5); Chloride 104 mmol/L (96-109); Chol/HDL Ratio 4.08 Ratio; Globulin 2.3 g/dL (1.6-3.3); Glucose 105 mg/dL (70-110); LDL Cholesterol,Calculated 70.5 mg/dL (0.0-131.0); Non-African American GFR(CKD) 62.2 (60.0-200.0); Potassium 4.8 mmol/L (3.5-5.5); Sodium 139 mmol/L (135-145); Total Protein 6.5 g/dL (6.2-8.2)
== END | disposition home or self-care (01) ==
LOC: LABWHC1 10:20
PROVIDERS: ATTEND Internal Medicine Cardiovascular Disease
DX: R73.02 Impaired glucose tolerance (oral) (principal); I25.10 Atherosclerotic heart disease of native coronary artery without angina pectoris; E78.2 Mixed hyperlipidemia; E66.9 Obesity, unspecified
CPT/HCPCS: 36415; 80053; 80061; 83036; 84443; 85027

== ENCOUNTER → 2022-08-13 | Outpatient (CLI) | payer MEDICARE, OTHER ==
[2022-08-13 15:59] LABS: Chol/HDL Ratio 4.17 Ratio
[2022-08-13 16:00] LABS: ALT 26 U/L (8-44); AST 24 U/L (13-35)
== END | disposition home or self-care (01) ==
LOC: LABWHC1 08:13
PROVIDERS: ATTEND Internal Medicine Cardiovascular Disease
DX: E78.2 Mixed hyperlipidemia (principal)
CPT/HCPCS: 36415; 80061; 84450; 84460

== ENCOUNTER → 2023-08-12 | Outpatient (CLI) | payer MEDICARE, OTHER ==
[2023-08-12 17:06] LABS: ALT 28 U/L (8-44); AST 25 U/L (13-35); Albumin/Globulin Ratio 1.67 Ratio (1.60-3.17); Alkaline Phosphatase 82 U/L (41-126); Blood Urea Nitrogen 20.4 mg/dL (9.0-27.0); Calcium 9.5 mg/dL (8.7-10.3); Carbon Dioxide 23.3 mmol/L (21.6-31.8); Chloride 111 mmol/L (96-109); Chol/HDL Ratio 3.26 Ratio; Globulin 2.4 g/dL (1.6-3.3); Glucose 113 mg/dL (70-110); HCT 42.9 % (37.2-46.3); HGB 13.1 g/dL (12.0-15.0); LDL Cholesterol,Calculated 52.6 mg/dL (0.0-131.0); MCH 27.5 pg (27.0-32.0); MCHC 30.5 g/dL (32.0-37.0); MCV 90.1 FL (80.0-97.0); Mean Platelet Volume 11.9 FL (9.5-12.2); NRBC Per 100 WBC 0 X 10*3/uL (0.00-0.01); Platelet Count 220 X 10*3/uL (140-440); Potassium 5.3 mmol/L (3.5-5.5); RBC 4.76 X 10*6/uL (4.10-5.20); RDW 14.3 % (11.5-14.5); Sodium 146 mmol/L (135-145); Total Bilirubin 0.4 mg/dL (0.3-1.2); Total Protein 6.4 g/dL (6.2-8.2); WBC 8.74 X 10*3/uL (4.50-10.00)
== END | disposition home or self-care (01) ==
LOC: LABWHC1 07:57
PROVIDERS: ATTEND Internal Medicine Cardiovascular Disease
DX: E78.2 Mixed hyperlipidemia (principal); R73.02 Impaired glucose tolerance (oral); I10 Essential (primary) hypertension; I25.10 Atherosclerotic heart disease of native coronary artery without angina pectoris; E78.5 Hyperlipidemia, unspecified
CPT/HCPCS: 36415; 80053; 80061; 83036; 84443; 85027

== ENCOUNTER → 2024-08-13 | Outpatient (CLI) | payer MEDICARE ==
[2024-08-13 16:31] LABS: HCT 42.5 % (37.2-46.3); HGB 13.6 g/dL (12.0-15.0); MCH 28.1 pg (27.0-32.0); MCV 87.8 FL (80.0-97.0); Mean Platelet Volume 11.3 FL (9.5-12.2); NRBC Per 100 WBC 0 X 10*3/uL (0.00-0.01); Platelet Count 220 X 10*3/uL (140-440); RBC 4.84 X 10*6/uL (4.10-5.20); RDW 13.9 % (11.5-14.5); WBC 8.98 X 10*3/uL (4.50-10.00)
[2024-08-13 16:47] LABS: ALT 35 U/L (8-44); AST 34 U/L (13-35); Albumin 3.8 g/dL (3.8-4.9); Albumin/Globulin Ratio 1.81 Ratio (1.60-3.17); Alkaline Phosphatase 110 U/L (41-126); Blood Urea Nitrogen 26.7 mg/dL (9.0-27.0); Chloride 107 mmol/L (96-109); Chol/HDL Ratio 2.83 Ratio; Globulin 2.1 g/dL (1.6-3.3); Glucose 95 mg/dL (70-110); LDL Cholesterol,Calculated 64.2 mg/dL (0.0-131.0); Potassium 4.2 mmol/L (3.5-5.5); Sodium 140 mmol/L (135-145); Total Bilirubin 0.6 mg/dL (0.3-1.2); Total Protein 5.9 g/dL (6.2-8.2); VLDL Calculation 18.04 mg/dL (5.00-40.00)
== END | disposition home or self-care (01) ==
LOC: LABWHC1 08:05
PROVIDERS: ATTEND Physician Assistant
DX: I25.10 Atherosclerotic heart disease of native coronary artery without angina pectoris (principal); E78.2 Mixed hyperlipidemia; E11.69 Type 2 diabetes mellitus with other specified complication; E11.59 Type 2 diabetes mellitus with other circulatory complications; E11.22 Type 2 diabetes mellitus with diabetic chronic kidney disease; N18.31 Chronic kidney disease, stage 3a
CPT/HCPCS: 36415; 80053; 80061; 83036; 84443; 85027